=== PATIENT | female | born 1980 | race American Indian/Alaskan Native ===

== ENCOUNTER 2016-10-01 06:28 | Outpatient (CLI) | payer OTHER, BC ==
[2016-10-01 07:22] LABS: Blood Urea Nitrogen 12 mg/dL (7-17)
--- NOTE | 2016-10-01 11:54 | Cat Scan Report ---
CT ABDOMEN AND PELVIS WITH AND WITHOUT CONTRAST: HISTORY: Abdominal and pelvic pain. TECHNIQUE: Helical CT before and after IV contrast and with oral contrast. Sagittal and coronal reformatted images. FINDINGS: No relevant comparison. Heart size is normal. The visualized lung bases are clear. No acute bony abnormality. Normal liver, biliary system, pancreas, spleen, kidneys and adrenal glands. The aorta is normal caliber and without disease. The bowel loops are normal caliber and wall thickness. Normal appendix. No diverticular changes or obstruction. The uterus is mildly enlarged with evidence of small fibroids. The endometrial stripe appears normal measuring one centimeters. The right ovary is unremarkable. A 1.7 cm cyst is identified in the left ovary. The bladder and distal ureters are normal. IMPRESSION: 1. 1.7 cm left ovarian cyst. 2. Mild uterine fibroid disease.
== END 2016-10-01 06:29 | disposition home or self-care (01) ==
LOC: CT 06:28
PROVIDERS: ATTEND Family Medicine
DX: D25.9 Leiomyoma of uterus, unspecified (principal); N83.202 Unspecified ovarian cyst, left side; N85.2 Hypertrophy of uterus
CPT/HCPCS: 36415; 74178; 82565; 84520; Q9967